=== PATIENT | female | born 1975 | race Two or more races ===

== ENCOUNTER 2022-07-07 08:04 | Outpatient (CLI) | payer OTHER ==
[~2022-07-07 08:04] MED LIST: ANAPROX275 MG PO; CEFTIN250 MG PO; DOLOGESIC CAPLE1 TAB PO; [UNRECOGNIZED DRUG - OTHER]
== END 2022-07-07 08:09 | disposition home or self-care (01) ==
LOC: SONOGRAMA 08:04
PROVIDERS: ATTEND General Practice
DX: R10.9 Unspecified abdominal pain (principal); M25.521 Pain in right elbow; E78.5 Hyperlipidemia, unspecified; R73.01 Impaired fasting glucose; M25.541 Pain in joints of right hand; M25.542 Pain in joints of left hand

== ENCOUNTER 2022-07-07 09:45 | Outpatient (CLI) | payer OTHER | END 2022-07-07 09:52 | disposition home or self-care (01) | LOC: LAB 09:45 | PROVIDERS: ATTEND General Practice | DX: R10.9 Unspecified abdominal pain (principal); M25.521 Pain in right elbow; E78.5 Hyperlipidemia, unspecified; R73.01 Impaired fasting glucose ==

== ENCOUNTER 2022-11-24 09:47 | Outpatient (CLI) | payer OTHER | END 2022-11-24 09:58 | disposition home or self-care (01) | LOC: RAD 09:47 | PROVIDERS: ATTEND General Practice | DX: M54.50 Low back pain, unspecified (principal); M53.3 Sacrococcygeal disorders, not elsewhere classified ==

== ENCOUNTER → 2023-01-25 | Outpatient (CLI) | payer OTHER ==
[~2023-01-25] MED LIST changes: +NABUMETONE750 MG PO
== END | disposition home or self-care (01) ==
LOC: RAD 11:28
DX: M25.511 Pain in right shoulder (principal); M54.2 Cervicalgia; M62.838 Other muscle spasm

== ENCOUNTER 2023-06-25 09:45 | Outpatient (CLI) | payer OTHER | END 2023-06-25 09:51 | disposition home or self-care (01) | LOC: RAD 09:45 | PROVIDERS: ATTEND General Practice | DX: R07.89 Other chest pain (principal); R06.02 Shortness of breath ==

== ENCOUNTER 2024-09-06 07:06 | Outpatient (CLI) | payer OTHER | END 2024-09-06 07:20 | disposition home or self-care (01) | LOC: SONOGRAMA 07:06 | PROVIDERS: ATTEND General Practice | DX: R10.9 Unspecified abdominal pain (principal); N39.0 Urinary tract infection, site not specified; Z87.440 Personal history of urinary (tract) infections; R53.81 Other malaise; R19.09 Other intra-abdominal and pelvic swelling, mass and lump ==

== ENCOUNTER 2024-10-17 07:09 | Outpatient (CLI) | payer OTHER | END 2024-10-17 07:20 | disposition home or self-care (01) | LOC: TOM 07:09 | PROVIDERS: ATTEND Surgery | DX: K43.6 Other and unspecified ventral hernia with obstruction, without gangrene (principal) ==

== ENCOUNTER 2025-01-16 05:56 | Day surgery (SDC) | payer OTHER ==
[2025-01-10 09:20] LABS: PH,URINE 5.5 (5.0-8.0); URINE APPEARANCE Clear; URINE BILIRRUBIN Negative (NEGATIVE); URINE BLOOD Negative; URINE COLOR Yellow; URINE GLUCOSE Negative (NEGATIVE); URINE KETONE Negative (NEGATIVE); URINE LEUKOCYTE Small; URINE NITRATE Positive; URINE PROTEIN Negative (NEGATIVE); URINE UROBILINOGEN 0.2 E.U./dl
[2025-01-10 09:21] LABS: HEMATOCRIT 42.9 % (36.0-45.00); HEMOGLOBIN 14.6 g/dL (12.0-15.00); MEAN CELL VOLUME 80.6 fL (80.00-100.00); MEAN CORPUSCULAR HEMOGLOBIN 27.5 pg (27.00-32.0); MEAN CORPUSCULAR HGB CONC 34.2 g/dl (32.0-36.0); PLATELET COUNT 306 K/uL (150-450); RED BLOOD COUNT 5.32 M/uL (4.00-6.00)
[2025-01-10 09:24] LABS: URINE EPITHELIAL CELLS 25.3 uL (0.0-38.8); URINE WBC 106.9 uL (0.0-23.2)
[2025-01-10 09:34] LABS: URINE BACTERIA > 9821.5 uL (0.0-1933); URINE CAST 0.14 uL (0.0-1.40); URINE RBC 1.9 uL (0.0-20.8)
[2025-01-10 09:37] VITALS: BP 153/92
[2025-01-10 09:39] LABS: INR 0.98; PARTIAL THROMBOPLASTIN TIME 28.6 SECONDS (22.0-34.0); PROTHROMBIN TIME 10.7 SECONDS (9.0-11.5)
[2025-01-10 10:07] LABS: ALBUMIN 4.1 gm/dL (3.4-5.0); BILIRUBIN TOTAL 0.39 mg/dL (0.3-1.2); CREATININE SERUM 0.71 mg/dL (0.55-1.02); GFR 87.49; POTASSIUM 4.49 mEq/L (3.5-5.1); TOTAL PROTEIN 8.1 gm/dL (6.4-8.2)
[~2025-01-16] VITALS: Ht 157.5 cm; Wt 78.5 kg
[2025-01-16] MEDS ORDERED: BUPIVACAINE HCL/Mpf 0.5% 10ML VIAL ONE (08:14)
[2025-01-16] MEDS ORDERED: CEFAZOLIN SODIUM 1,000 MG VIAL IV ONE (10:00)
[2025-01-16] MEDS ORDERED: MORPHINE SULFATE 4 MG/ML VIAL IV ONE ×2 (10:40→10:55)
== END 2025-01-16 12:35 | disposition home or self-care (01) ==
LOC: CIR.AMB 05:56
PROVIDERS: ATTEND Surgery
DX: K43.6 Other and unspecified ventral hernia with obstruction, without gangrene (principal)